=== PATIENT | female | born 1995 | race Caucasian/White ===

== ENCOUNTER → 2017-10-07 | Outpatient (CLI) | payer BC ==
[~2017-10-07] VITALS: Ht 160 cm; Wt 75.0 kg
[~2017-10-07] MED LIST: TYLENOL 325MG325 MG PO; VALIUM 5MG T5 MG/TAB PO
[2017-10-07 12:49] VITALS: BP 126/66
[2017-10-07 13:05] LABS: ALBUMIN 4.8 g/dL (3.5-5.0); BUN/CREATININE RATIO 14.4 (6.0-26.0); CALCIUM 9.7 mg/dL (8.4-10.2); POTASSIUM 3.8 mmol/L (3.6-5.0); TOTAL BILIRUBIN 1.2 mg/dL (0.2-1.3); TOTAL PROTEIN 8.7 g/dL (6.3-8.2)
[2017-10-07 13:07] LABS: PROTHROMBIN TIME 10.7 SECONDS (9.0-12.0)
[2017-10-07 14:05] LABS: HEMATOCRIT 40.8 % (35.0-45.0); HEMOGLOBIN 13.7 g/dL (12.0-15.0); MEAN CELL VOLUME 85 fl (78-95); MEAN CORPUSCULAR HEMOGLOBIN 29 pg (26-32); MEAN CORPUSCULAR HGB CONC 34 g/dL (33-37); MEAN PLATELET VOLUME 11.2 fl (7.4-10.4); PLATELET COUNT 235 K/mm3 (130-400); RED CELL DISTRIBUTION WIDTH 12.8 % (11.5-14.5); WHITE BLOOD COUNT 7.9 K/mm3 (4.8-10.8)
[2017-10-07 14:09] LABS: LYMPHOCYTE 24 % (20-51); MONOCYTE 3 % (1-10); NEUTROPHILS 70 % (42-75)
[2017-10-07 14:20] LABS: PH-URINE 6.5 (5.0 - 8.0); URINE APPEARANCE HAZY; URINE COLOR YELLOW
[2017-10-07 14:21] LABS: URINE BILIRUBIN NEGATIVE (NEGATIVE); URINE BLOOD NEGATIVE (NEGATIVE); URINE GLUCOSE NEGATIVE (NEGATIVE); URINE KETONE NEGATIVE (NEGATIVE); URINE LEUKOCYTE ESTERASE NEGATIVE (NEGATIVE); URINE NITRATE NEGATIVE (NEGATIVE); URINE PROTEIN(semi-quant) NEGATIVE (NEGATIVE); URINE UROBILINOGEN NORMAL (NORMAL)
== END ==
LOC: AMSURD 12:11
PROVIDERS: Internal Medicine
DX: Z01.818 Encounter for other preprocedural examination (principal); Z36.89 Encounter for other specified antenatal screening